=== PATIENT | male | born 1995 | race Caucasian/White ===

== ENCOUNTER 2021-05-04 17:15 | Emergency (ER) | payer SELFPAY ==
[~2021-05-04] VITALS: Ht 170.2 cm; Wt 72.7 kg
[2021-05-04 18:07] VITALS: BP 96/63
== END 2021-05-04 18:11 ==
LOC: ER 17:16
DX: Z13.89 Encounter for screening for other disorder (principal); V87.7XXA Person injured in collision between other specified motor vehicles (traffic), initial encounter; Y93.89 Activity, other specified; Y92.89 Other specified places as the place of occurrence of the external cause; Y99.8 Other external cause status
CPT/HCPCS: 99283